=== PATIENT | female | born 2000 | race Two or more races ===

== ENCOUNTER 2022-05-05 06:43 | Inpatient (IN) | payer OTHER ==
[2022-05-05] MEDS ORDERED: CITRIC ACID/SODIUM CITRATE 30 ML UNIT-DOSE CUP PO ONE (08:01)
[2022-05-05] MEDS ORDERED: ELECTROLYTE-148 SOLN 500 ML IV ONE (08:01)
[2022-05-05] MEDS ORDERED: ONDANSETRON 4 MG/2 ML VIAL IVPUSH PRN (08:11)
[2022-05-05] MEDS ORDERED: ACETAMINOPHEN 325 MG TABLET (FP) PO PRN (08:11)
[2022-05-05] MEDS ORDERED: PHENYLEPHRINE HCL 10 MG/1 ML SINGLE DOSE VIAL ONE (08:18)
[2022-05-05] MEDS ORDERED: morphine SULFATE/PF 1 MG/2 ML (2cc Syringe - QUVA) ONE (08:18)
[2022-05-05] MEDS ORDERED: ceFAZolin SODIUM 1 GM VIAL ONE ×2 (08:34)
[2022-05-05] MEDS ORDERED: ePHEDrine SULFATE 50 MG/1 ML AMPULE ONE (08:34)
[2022-05-05] MEDS: ELECTROLYTE-148 SOLN 1,000 ML IV SCH (08:40)
[2022-05-05] MEDS ORDERED: OXYTOCIN 20 UNITS in 0.9% NS 20 UNIT/1,000 ML INFUS.BAG IV ONE (09:23)
[2022-05-05] MEDS ORDERED: OXYTOCIN 10 UNITS/ML VIAL ONE ×4 (09:39)
[2022-05-05] MEDS: OXYTOCIN 20 UNITS in 0.9% NS 20 UNIT/1,000 ML INFUS.BAG IV SCH ×2 (09:40→18:29)
[2022-05-05 09:44] LABS: CORD BASE EXCESS -4.3 mmol/L (0-2); CORD HCO3 20.6 mmHg (20-29); CORD PCO2 37.9 mmHg (30-78); CORD pH 7.354 (7.14-7.44)
[2022-05-05 09:45] LABS: CORD BASE EXCESS -3.7 mmol/L (0-2); CORD HCO3 22.3 mmHg (20-29); CORD PCO2 43.8 mmHg (30-78); CORD pH 7.325 (7.14-7.44)
[2022-05-05] MEDS ORDERED: METHYLERGONOVINE MALEATE 0.2 MG/1 ML AMP IM PRN (09:54)
[2022-05-05] MEDS ORDERED: SENNOSIDES/DOCUSATE COMBO (SENNA PLUS) TABLET (UD) PO PRN (09:54)
[2022-05-05 10:02] LABS: URINE BARBITURATES NEGATIVE (NEGATIVE)
[2022-05-05 10:08] LABS: METHADONE, UR NEGATIVE (NEGATIVE); PHENCYCLIDINE,URINE NEGATIVE (NEGATIVE); URINE BENZODIAZEPINES NEGATIVE (NEGATIVE)
[2022-05-05 10:09] LABS: COCAINE, UR NEGATIVE (NEGATIVE); OPIATES, URI NEGATIVE (NEGATIVE)
[2022-05-05 10:22] LABS: URINE AMPHETAMINES NEGATIVE (NEGATIVE)
[2022-05-05 10:33] VITALS: BMI 25.7
[2022-05-05] MEDS: ACETAMINOPHEN 1000 MG/100 ML BAG IVPB PRN ×3 (13:42→23:42)
[2022-05-05] MEDS: CEFAZOLIN 1 GM in DEXTROSE 5%-WATER - 50 ML IVPB SCH (17:05)
[2022-05-05] MEDS ORDERED: oxyCODONE HCL 5 MG TABLET PO PRN (21:55)
[2022-05-06] MEDS: CEFAZOLIN 1 GM in DEXTROSE 5%-WATER - 50 ML IVPB SCH ×2 (00:14→09:40)
[2022-05-06] MEDS: IBUPROFEN 600 MG TABLET (FP) PO PRN ×3 (02:42→20:02)
[2022-05-06] MEDS: SIMETHICONE 80 MG TAB.CHEW (FP) PO PRN ×3 (02:42→23:51)
[2022-05-06] MEDS: oxyCODONE HCL 5 MG TABLET PO PRN ×2 (04:43→23:52)
[2022-05-06 07:18] LABS: BASO % 0.4 % (0-2.0); EOS % 1.2 % (0-4.5); HEMATOCRIT 24.3 % (32.4-45.2); HEMOGLOBIN 7.7 GM/dL (10.7-15.3); LYMPH % 9.5 % (8-40); MCH 22.3 pg (25.7-33.7); MCHC 31.7 g/dl (32.0-36.0); MEAN CELL VOLUME 70.3 fl (80-96); MEAN PLT VOLUME 9.1 fl (7.5-11.1); MONO % 5.3 % (3.8-10.2); NEUT % 83.6 % (42.8-82.8); PLATELET COUNT 206 10^3/uL (134-434); RBC 3.46 M/mm3 (3.60-5.2); RDW 16.9 % (11.6-15.6)
[2022-05-06] MEDS: ENOXAPARIN NA (PORCINE) 40 MG/0.4 ML DISP.SYRIN SQ SCH (09:30)
[2022-05-06] MEDS: PRENATAL VITAMINS W/ FOLIC ACID TABLET (FP) PO SCH (09:40)
[2022-05-06] MEDS ORDERED: BISACODYL 10 MG SUPP.RECT RC PRN (09:55)
[2022-05-06] MEDS ORDERED: FERROUS SO4 325 MG TABLET (FP) PO ONE (10:45)
[2022-05-06] MEDS: FERROUS SO4 325 MG TABLET (FP) PO SCH (21:05)
[2022-05-07] MEDS: IBUPROFEN 600 MG TABLET (FP) PO PRN ×2 (06:32→16:19)
[2022-05-07 09:06] VITALS: RESP 18
[2022-05-07 09:11] LABS: HEMATOCRIT 24.6 % (32.4-45.2); HEMOGLOBIN 7.8 GM/dL (10.7-15.3); MCH 22.5 pg (25.7-33.7); MCHC 31.7 g/dl (32.0-36.0); MEAN CELL VOLUME 71.1 fl (80-96); MEAN PLT VOLUME 8.5 fl (7.5-11.1); PLATELET COUNT 248 10^3/uL (134-434); RBC 3.47 M/mm3 (3.60-5.2); RDW 16.9 % (11.6-15.6)
[2022-05-07] MEDS: FERROUS SO4 325 MG TABLET (FP) PO SCH ×2 (10:34→21:05)
[2022-05-07] MEDS: ENOXAPARIN NA (PORCINE) 40 MG/0.4 ML DISP.SYRIN SQ SCH (10:34)
[2022-05-07] MEDS: PRENATAL VITAMINS W/ FOLIC ACID TABLET (FP) PO SCH (10:34)
[2022-05-07] MEDS: SIMETHICONE 80 MG TAB.CHEW (FP) PO PRN (16:19)
[2022-05-07] MEDS: ELECTROLYTE-148 SOLN 1,000 ML IV SCH ×2 (20:17→20:19)
[2022-05-08] MEDS: SIMETHICONE 80 MG TAB.CHEW (FP) PO PRN (00:14)
[2022-05-08] MEDS: IBUPROFEN 600 MG TABLET (FP) PO PRN ×2 (00:14→13:10)
[2022-05-08 08:13] LABS: BASO % 0.3 % (0-2.0); EOS % 3.4 % (0-4.5); HEMATOCRIT 26.3 % (32.4-45.2); HEMOGLOBIN 8.1 GM/dL (10.7-15.3); LYMPH % 14.2 % (8-40); MCH 21.8 pg (25.7-33.7); MCHC 30.9 g/dl (32.0-36.0); MEAN CELL VOLUME 70.6 fl (80-96); MEAN PLT VOLUME 8.3 fl (7.5-11.1); MONO % 5.1 % (3.8-10.2); PLATELET COUNT 278 10^3/uL (134-434); RBC 3.73 M/mm3 (3.60-5.2); RDW 16.7 % (11.6-15.6); WHITE BLOOD COUNT 8.5 K/mm3 (4.0-10.0)
[2022-05-08] MEDS: PRENATAL VITAMINS W/ FOLIC ACID TABLET (FP) PO SCH (10:16)
[2022-05-08] MEDS: FERROUS SO4 325 MG TABLET (FP) PO SCH (10:16)
[2022-05-08] MEDS: ENOXAPARIN NA (PORCINE) 40 MG/0.4 ML DISP.SYRIN SQ SCH (10:16)
[2022-05-08 10:51] VITALS: BP 111/67; PULSE 104; TEMP 98.2
== END 2022-05-08 13:40 | disposition home or self-care (01) | DRG 540 ==
LOC: JLDR 06:43 → J3W 11:20
PROVIDERS: ADMIT Obstetrics & Gynecology; ATTEND Obstetrics & Gynecology
PROC: 10D00Z1 Extraction of Products of Conception, Low, Open Approach (ICD-10-PCS; principal; 2022-05-05)
DX: O34.219 Maternal care for unspecified type scar from previous cesarean delivery (principal); O90.81 Anemia of the puerperium; Z3A.39 39 weeks gestation of pregnancy; Z37.0 Single live birth
CPT/HCPCS: 36415; 36600; 80307; 82803; 85025; 85027; 85461; 86999; 87086; 88307-TC

== ENCOUNTER 2022-06-06 15:13 | Emergency (ER) | payer OTHER ==
[2022-06-06 15:21] VITALS: BP 120/61; PULSE 86; RESP 18; TEMP 98; BMI 51.6
[2022-06-06] MEDS ORDERED: CEPHALEXIN MONOHYDRATE 500 MG CAPSULE (UD) PO ONE (18:07)
[2022-06-06] MEDS ORDERED: ACETAMINOPHEN 325 MG TABLET (FP) PO ONE (18:07)
[2022-06-06] MEDS ORDERED: ACETAMINOPHEN 325 MG TABLET (FP) ONE (18:22)
[2022-06-06] MEDS ORDERED: CEPHALEXIN MONOHYDRATE 500 MG CAPSULE (UD) ONE (18:22)
== END 2022-06-06 19:30 | disposition home or self-care (01) ==
LOC: JERFT 15:13
DX: T81.49XA Infection following a procedure, other surgical site, initial encounter (principal)
CPT/HCPCS: 87070; 87186; 87205; 99283-25

== ENCOUNTER 2023-07-21 19:51 | Emergency (ER) | payer OTHER ==
[2023-07-21 19:56] VITALS: BP 121/83; PULSE 62; RESP 17; BMI 31.2
[2023-07-21] MEDS ORDERED: LIDOCAINE 2.5%/PRILOCAINE 2.5% (5 Gram/TUBE) TP ONE (21:16)
[2023-07-21 21:55] VITALS: TEMP 98.2
== END 2023-07-21 22:44 | disposition home or self-care (01) ==
LOC: JERFT 19:51
DX: L02.31 Cutaneous abscess of buttock (principal); M79.10 Myalgia, unspecified site
CPT/HCPCS: 99283-25